=== PATIENT | male | born 1985 | race Caucasian/White ===

== ENCOUNTER 2018-04-22 06:38 | Emergency (ER) | payer OTHER ==
[~2018-04-22] VITALS: Ht 172.7 cm; Wt 99.8 kg
[2018-04-22] MEDS ORDERED: CIPROFLOXIN HC2.5 M1 OPHTHALMIC (07:43)
[2018-04-22] MEDS ORDERED: HYDROCODON-ACE1 EAC7 PO (07:43)
[2018-04-22 07:54] VITALS: BP 173/99
== END 2018-04-22 07:55 | disposition home or self-care (01) ==
LOC: M.ERS 06:38
DX: H16.133 Photokeratitis, bilateral (principal)

== ENCOUNTER 2018-05-19 16:29 | Emergency (ER) | payer OTHER ==
[~2018-05-19] VITALS: Ht 172.7 cm; Wt 104.3 kg
[~2018-05-19 16:29] MED LIST: CIPROFLOXIN HC2.5 M1 OPHTHALMIC; HYDROCODON-ACE1 EAC7 PO
[2018-05-19 17:00] LABS: ABSOLUTE BASOPHILS 0.1 thou/uL (0.0-0.2); ABSOLUTE EOSINOPHILS 0.1 thou/uL (0.0-0.7); ABSOLUTE LYMPHOCYTES 3.4 thou/uL (0.8-5.3); ABSOLUTE MONOCYTES 0.7 thou/uL (0.0-1.2); ABSOLUTE NEUTROPHILS 5.4 thou/uL (1.6-8.1); BASOPHILS 0.9 %; EOSINOPHILS 1.5 %; HEMATOCRIT 46.6 % (42.0-52.0); HEMOGLOBIN 16.2 gm/dL (14.0-18.0); LYMPHOCYTES 35.5 %; MCH 30.9 pg (26.0-34.0); MCHC 34.9 g/dL (28.0-37.0); MCV 88.6 fL (80.0-100.0); MONOCYTES 6.7 %; NUCLEATED RBCS 0 /100WBC; PLATELET COUNT* 277 thou/uL (150-400); POLYS 55.4 %; RBC 5.25 mil/uL (4.50-6.00); WBC 9.7 thou/uL (4.0-11.0)
[2018-05-19 17:14] LABS: ANION GAP 6 mmol/L (7-16); BUN 13 mg/dL (7-18); CALCIUM 8.7 mg/dL (8.5-10.1); CHLORIDE 104 mmol/L (98-107); CO2 29 mmol/L (21-32); GLUCOSE 91 mg/dL (70-99); POTASSIUM 3.5 mmol/L (3.5-5.1); SODIUM 139 mmol/L (136-145)
[2018-05-19 17:25] LABS: ALBUMIN 3.5 g/dL (3.4-5.0); ALKALINE PHOSPHATASE 141 U/L (46-116); LIPASE 171 U/L (73-393); MAGNESIUM 1.8 mg/dL (1.8-2.4); NT-PRO BRAIN NAT PEPTIDE 10 pg/mL (<300); SGOT 18 U/L (15-37); SGPT 35 U/L (30-65); TOTAL BILIRUBIN 0.3 mg/dL (<0.1-1.0); TOTAL PROTEIN 7.3 g/dL (6.4-8.2); TROPONIN-I LEVEL <0.06 ng/mL (<0.06)
[2018-05-19 19:56] VITALS: BP 135/84
--- NOTE | 2018-05-20 11:34 | EKG ---
[place] [address] ELECTROCARDIOGRAM REPORT Name: NEISHA SOTELO Room: [facility]#: [id number] Admission: 05/19/18 Attend Phys: Discharge: 05/19/18 Date of : 81 Report #: [id number] THIS REPORT FOR: //name// [facility] ED Test Date: 2018-05-19 Test Time: 16:34:37 Pat Name: NEISHA SOTELO Department: Room: Gender: M Medical Coding Specialist: EVANGELIST : 1985 Requested By: Ottoniel Garner Order Number: [id number] Marino MD: Casimiro Angulo Measurements Intervals [place] Rate: 79 P: 17 [place]: 140 QRS: -3 QRSD: 107 T: -1 QT: 385 QTc: 442 Interpretive Statements Sinus rhythm RSR' in V1 or V2, right VCD or RVH Borderline T abnormalities, diffuse leads Baseline wander in lead(s) V6 No previous ECG available for comparison Electronically Signed On 05-20-2018 11:34:19 COIN MACHINE ASSEMBLER by Casimiro Angulo [email or web address] <ELECTRONICALLY SIGNED> By: Casimiro Angulo MD, FAC 05/20/18 1134 1634 1634 Casimiro Angulo MD, [facility] /EPI
--- NOTE | 2018-05-20 11:34 | EKG ---
[place] [address] ELECTROCARDIOGRAM REPORT Name: NEISHA SOTELO Room: [facility]#: [id number] Admission: 05/19/18 Attend Phys: Discharge: 05/19/18 Date of : 81 Report #: [id number] THIS REPORT FOR: //name// [facility] ED Test Date: 2018-05-19 Test Time: 18:40:41 Pat Name: NEISHA SOTELO Department: Room: Gender: M Route Sales Specialist: Vanessa DOZIER : 1985 Requested By: Ottoniel Garner Order Number: [id number] MD: Casimiro Angulo Measurements Intervals [place] Rate: 64 P: 17 [place]: 148 QRS: -13 QRSD: 106 T: 9 QT: 403 QTc: 416 Interpretive Statements Sinus rhythm RSR' in V1 or V2, right VCD or RVH No previous ECG available for comparison Electronically Signed On 05-20-2018 11:34:41 PREPAROLE COUNSELING AIDE by Casimiro Angulo [email or web address] <ELECTRONICALLY SIGNED> By: Casimiro Angulo MD, [facility] 05/20/18 1134 Casimiro Angulo MD, FAC /EPI
--- NOTE | 2018-05-20 11:34 | EKG ---
[place] [address] ELECTROCARDIOGRAM REPORT Name: NEISHA SOTELO Room: [facility]#: [id number] Admission: 05/19/18 Attend Phys: Discharge: 05/19/18 Date of : 81 Report #: [id number] THIS REPORT FOR: //name// [facility] ED Test Date: 2018-05-19 Test Time: 18:58:09 Pat Name: NEISHA DEEPAK Department: Room: Gender: M Emergency Medicine: : 1985 Requested By: Ottoniel Garner Order Number: [id number] MD: Casimiro Angulo Measurements Intervals [place] Rate: 63 P: 20 [place]: 148 QRS: -11 QRSD: 106 T: 15 QT: 401 QTc: 411 Interpretive Statements Sinus rhythm RSR' in V1 or V2, right VCD or RVH No previous ECG available for comparison Electronically Signed On 05-20-2018 11:34:48 FREIGHT LOADER by Casimiro Angulo [email or web address] <ELECTRONICALLY SIGNED> By: Casimiro Angulo MD, [facility] 05/20/18 1134 57 57 Casimiro Angulo MD, FACC /EPI
== END 2018-05-19 19:35 | disposition home or self-care (01) ==
LOC: M.ERS 16:29
PROVIDERS: Emergency Medicine Emergency Medical Services
DX: R07.89 Other chest pain (principal)

== ENCOUNTER 2018-06-13 09:45 | Emergency (ER) | payer OTHER ==
[~2018-06-13] VITALS: Ht 172.7 cm; Wt 104.3 kg
[2018-06-13] MEDS ORDERED: TRAMADOL 50 MG50 MG PO (11:11)
[2018-06-13] MEDS ORDERED: MEDROLDOSEPACK PO (11:11)
[2018-06-13] MEDS ORDERED: ROBAXIN 750 MG750 M1 PO (11:11)
[2018-06-13 11:31] VITALS: BP 161/96
== END 2018-06-13 11:31 | disposition home or self-care (01) ==
LOC: M.ERS 09:45
DX: M54.5 Low back pain (principal)